=== PATIENT | male | born 1985 | race Caucasian/White ===

== ENCOUNTER 2024-12-21 13:21 | Emergency (ER) | payer SELFPAY ==
[2024-12-21 13:34] VITALS: BP 120/76
[2024-12-21 13:42] VITALS: BMI 25.5
--- NOTE | 2024-12-21 13:48 | ED.SKININJ ---
HPI-Injury
General
Chief Complaint: Skin Surface Trauma
Source: patient
Exam Limitations: none
Time Seen by Provider: 12/21/24 13:40
History of Present Illness-Injury
Initial Injury comments:
39-year-old male presents with laceration to right foot he sustained today. He was putting a piece of firewood went through the piece and then hit his foot with his ax. The axe went through his boot. He notes a laceration to this area
Past History
Past History
ED Past Medical History: None
ED Past Surgical History: None
Social History
Tobacco: Smoker
Personal: Single
Living: with family
Employment: Employed
Phy Exam
Physical Exam
Physical Exam:
General: Anxious appearing male no acute respiratory distress
HEENT normocephalic atraumatic
Skin: Laceration dorsal aspect right foot measuring to 4 cm in the longitudinal direction just medial to the first metatarsal
. No obvious joint involvement musculoskeletal exam: Patient reluctant or unable to extend large toe but has good sensation to all toes. There is brisk Apley refill to all toes
Course
Orders/Labs/Results
Orders:
Orders
12/21/24 13:43
Tetanus/Diphth/Acelpertussis [Adacel] 0.5 ml IM .ONCE ONE
12/21/24 13:47
CR Foot - Right Min 3 Views Routine
Comment:
Reason For Exam: laceration
12/21/24 14:49
Ortho Boot Right- Treatment ONCE
Short or tall?: Short
Cephalexin Monohydrate [Keflex] 500 mg PO NOW STA
Vital Signs
Initial and Last Documented VS:
Initial Vital Signs
Temp Pulse Resp BP Pulse Ox
97.8 F 80 16 120/76 100
12/21/24 13:34 12/21/24 13:34 12/21/24 13:34 12/21/24 13:34 12/21/24 13:34
Last Documented Vital Signs
Temp Pulse Resp BP Pulse Ox
97.8 F 63 9 120/84 100
12/21/24 13:34 12/21/24 14:00 12/21/24 14:00 12/21/24 14:00 12/21/24 14:00
*Critical Care Note
Total Time (30-74mins, 75-104mins- exclusive of procedures): Not Applicable
Update Note
Update Note:
The wound was copiously irrigated with saline. This was then anesthetized with 1% lidocaine with epinephrine and closed in a running fashion using 4-0 Prolene sutures. 8 sutures were required. X-rays of the right foot show a small sliver of the
medial aspect of the first metatarsal to be avulsed. Keflex was started. Tetanus was updated. A boot and crutches were supplied advised follow-up.
ED Attending Note
-
Portions of this chart may have been created with voice recognition software.� Occasional wrong word or��sound alike� substitutions may have occurred due to the inherent limitations of voice recognition software.
Discharge Plan
Departure
Patient Disposition: Home (Routine Discharge)
Date of Disposition: 12/21/24
Time of Disposition: 14:56
Patient with high blood pressure during this ER visit?: No
Discharge Problem:
Laceration, Foot fracture, right
Instructions: Laceration Repair With Stitches (DC)
Prescriptions:
New
cephalexin 500 mg capsule
500 mg PO QID 7 Days Qty: 28 0RF
No Action
clindamycin HCl 300 MG capsule
300 mg PO QID Qty: 40 0RF
acetaminophen-codeine 300 MG/30 MG tablet
1 tab PO .Q4-6HPRN Qty: 14 0RF
Referrals:
Cande Fonseca, [Family Provider] -
Activity Restrictions/Additional Instructions:
Take antibiotics as directed. Use Tylenol or ibuprofen for pain. Sutures need to be removed in 2 weeks. Please follow-up with work-related physician for further evaluation. As discussed there is a small sliver of bone that was involved in this
injury
Interventions
Interventions:
*Risk Screen - Suicide Last Done: 12/21/24 13:34
*General Assessment Last Done: 12/21/24 13:42
*Neglect/Abuse Screening Last Done: 12/21/24 13:34
*ED- Fall Risk Assessment Last Done: 12/21/24 13:42
*ED COVID-19 Vaccine History Last Done: 12/21/24 13:42
Discharge Date and Time
Print Language: SYRIAC
[2024-12-21 14:00] VITALS: BP 120/84
[2024-12-21] MEDS: ADACEL 0.5 ML IM (14:02)
[2024-12-21] MEDS: KEFLEX 500 MG PO (15:21)
== END 2024-12-21 15:58 | disposition home or self-care (01) ==
LOC: EMR 13:21
PROVIDERS: EMERGENCY PHYSICIAN Emergency Medicine; FAMILY PHYSICIAN Family Medicine
DX: S91.311A Laceration without foreign body, right foot, initial encounter (principal); S92.901A Unspecified fracture of right foot, initial encounter for closed fracture; W22.8XXA Striking against or struck by other objects, initial encounter; F17.200 Nicotine dependence, unspecified, uncomplicated; Z23 Encounter for immunization
CPT/HCPCS: 90471; 12002; 99283; 73630; 90715